=== PATIENT | female | born 1935 | race Caucasian/White ===

== ENCOUNTER 2025-06-23 15:31 | Emergency (ER) | payer MEDICARE, SELFPAY ==
[2025-06-23] VITALS (25 sets, daily range): BP systolic 164–240; BP diastolic 77–102; PULSE 76–99; RESP 12–35; TEMP 36.5; O2SAT 83–99
--- NOTE | 2025-06-23 15:51 | DI.RAD.S_ITS ---
PROCEDURE: XR CHEST 1V INDICATIONS: chest pain/sob TECHNIQUE: One view of the chest was acquired. COMPARISON: None. FINDINGS: Surgical changes and devices: None. Lungs and pleura: Lungs are clear. No pleural effusions or pneumothorax. Mediastinum: Mediastinal contours appear normal. Heart size is normal. Bones and chest wall: No suspicious bony lesions. Overlying soft tissues appear unremarkable. IMPRESSION: No acute cardiopulmonary abnormality is seen. Dictated by: Lionel Milligan M.D. on 06/23/2025 at 16:37 Approved by: Lionel Milligan M.D. on 06/23/2025 at 16:38
--- NOTE | 2025-06-23 15:51 | EKG_ITS ---
[address] [address] Test Date: 2025-06-23 Pat Name: Sariah Florentino Department: [facility] Room: Gender: Female [employer]: MICHAEL : 1935 Requested By: Order Number: [id number] Reading MD: Darci Quesada MD Measurements Intervals [place] Rate: 93 P: 92 NC: 188 QRS: 80 QRSD: 84 T: 50 QT: 334 QTc: 415 Interpretive Statements Sinus rhythm with fusion complexes Nonspecific ST and T wave abnormality Electronically Signed On 06-23-2025 17:06:08 PST by Darci Quesada MD
--- NOTE | 2025-06-23 15:52 | ED.SOB ---
HPI - SOB/Dyspnea General Chief Complaint: Shortness of Breath/Dyspnea Stated Complaint: PC ref, Breathing issues, might need nebulizer tx Time Seen by Provider: 06/23/25 15:51 Source: patient, RN notes reviewed and old records reviewed Mode of arrival: Wheelchair Limitations: no limitations History of Present Illness HPI Narrative: 89-year-old female with history of COPD, coronary artery disease with prior cardiac stent on aspirin daily with known peripheral vascular disease who presents with complaint of increasing shortness of breath and substernal chest discomfort. Patient states her shortness of breath has progressively worse over months. She states she has a little bit of substernal chest pain without any radiation. She notes some subjective fever, she has has a little nasal congestion in the past week. She states her cough has been slightly worse she has 1 at baseline and states she has had white discolored sputum. No hemoptysis. She denies any nausea or vomiting. She denies any diarrhea or constipation or other GI symptoms. She denies any urinary symptoms. Patient notes chronic swelling in her lower extremities but not worse than normal. She notes she has had a prior cardiac stent she is on aspirin she states she takes medication for hypertension, dyslipidemia denies any diabetes. Her and her daughter note that she has narrowing of the veins in her lower extremities but has been told by vascular that they are unable to intervene. She states she has had prior neck surgery and bilateral knee surgery but denies any other surgical history. Patient reports an allergy to morphine states that her arm got swollen and red. She has a history tobacco use, 1 alcoholic drink yearly, no recreational drugs. Dr. Gonzalez is her primary care physician. She follows with the vascular through [facility]. She sees Cardiology locally. Related Data Allergies Allergy/AdvReac Type Severity Reaction Status Date / Time morphine (MORPHINE) Allergy Unknown Unverified 06/23/25 20:02 Review of Systems Review of Systems ROS Unobtainable: All systems reviewed & are unremarkable except as noted in HPI and below Patient History Social History Smoking Status: Former smoker Smoking Status: Former smoker Exam Narrative Exam Narrative: GENERAL: Alert and oriented x three, elderly female in mild distress HEENT: Head normocephalic, atraumatic, EOMI, pupils reactive, face symmetric, moist mucous membranes NECK: Supple, full range of motion CARDIOVASCULAR: Regular rate and rhythm without murmurs, rubs or gallops. Mild edema bilateral lower extremities. RESPIRATORY: Breath sounds decreased bilaterally, no wheezes, no rhonchi. Mild tachypnea. Crackles in bilateral bases. ABDOMEN: Soft, nontender. Normoactive bowel sounds all 4 quadrants. No guarding or rebound, rigidity, no mass : No CVA tenderness EXTREMITIES: Normal range of motion, no clubbing. Neurovascularly intact NEUROLOGICAL: Cranial nerves II through XII grossly intact. Moving all extremities SKIN: Warm, dry, no petechiae, no rashes or lesions. Initial Vital Signs Initial Vital Signs: Vital Signs Pulse Rate 76 06/23/25 15:44 Pulse Oximetry 95 06/23/25 15:44 Course Orders Ordered: ED Orders 06/23/25 15:48 Complete Blood Count AUTO DIFF Stat Comprehensive Metabolic Panel Stat Lipase Stat Magnesium Stat NT-proBNP (BNP-Adult 18+) Stat PTT [PTT Partial Thromboplastin Arben] Stat Troponin I Stat 06/23/25 15:51 XR chest 1V Stat EKG-12 Lead Stat 06/23/25 15:52 Covid-19 + FLU A/B + RSV - PCR Stat 06/23/25 17:48 Trop I [Troponin I] Stat Discontinued Medications Albuterol/Ipratropium (Albuterol/Ipratropium 3 Ml Ampul) 3 ml INH NOW ONE Stop: 06/23/25 15:52 Last Admin: 06/23/25 15:55 Dose: 3 ml Documented By: PEGGY Aspirin (Aspirin 81 Mg Chew Tab) 324 mg PO NOW ONE Stop: 06/23/25 16:33 Last Admin: 06/23/25 16:39 Dose: 324 mg Documented By: JOHN Heparin Sodium (Porcine) (Heparin 5,000 Unit/Ml Vial) 4,500 unit 60 unit/kg (4500 unit) IV NOW ONE Stop: 06/23/25 17:17 Last Admin: 06/23/25 17:29 Dose: 4,500 unit Documented By: JOHN Heparin Sodium/Dextrose (Heparin Drip) 25,000 unit in 500 mls @ 17.309 mls/hr IV CONT ALAN; Protocol Last Admin: 06/23/25 17:29 Dose: 12 units/kg/hr, 17.309 mls/hr Documented By: JOHN Co-signed By: FABIANO Lorazepam (Lorazepam 0.5 Mg Tablet) 0.5 mg PO NOW ONE Stop: 06/23/25 20:00 Last Admin: 06/23/25 20:04 Dose: 0.5 mg Documented By: FABIANO Methylprednisolone (Methylprednisolone Succ 125 Mg/2 Ml Vial) 125 mg IV NOW ONE Stop: 06/23/25 15:52 Last Admin: 06/23/25 16:05 Dose: 125 mg Documented By: JOHN Nitroglycerin (Nitroglycerin 0.4 Mg Sl Tab) 0.4 mg SL NOW ONE Stop: 06/23/25 17:05 Last Admin: 06/23/25 17:17 Dose: 0.4 mg Documented By: JOHN Vital Signs Vital signs: Vital Signs - 8 hr 06/23/25 15:44 06/23/25 15:47 06/23/25 15:47 Temperature Pulse Rate 76 94 H Respiratory Rate 19 Blood Pressure 240/102 H Pulse Oximetry 95 95 Oxygen Delivery Method Oxygen Flow Rate Fraction of Inspired Oxygen 06/23/25 15:48 06/23/25 15:48 06/23/25 15:48 Temperature Pulse Rate 99 H 95 H Respiratory Rate 22 12 Blood Pressure 240/102 H 209/102 H Pulse Oximetry 83 L 95 Oxygen Delivery Method Room Air Oxygen Flow Rate Fraction of Inspired Oxygen 06/23/25 15:53 06/23/25 15:56 06/23/25 16:00 Temperature 97.7 F Pulse Rate 92 H Respiratory Rate 20 Blood Pressure 189/89 H Pulse Oximetry 98 Oxygen Delivery Method Nasal Cannula Oxygen Flow Rate 3 Fraction of Inspired Oxygen 32 06/23/25 16:00 06/23/25 16:30 06/23/25 16:31 Temperature Pulse Rate 92 H 82 Respiratory Rate 32 H 24 Blood Pressure 176/78 H Pulse Oximetry 98 98 Oxygen Delivery Method Oxygen Flow Rate Fraction of Inspired Oxygen 06/23/25 16:31 06/23/25 17:00 06/23/25 17:00 Temperature Pulse Rate 81 88 Respiratory Rate 23 26 H Blood Pressure 201/88 H Pulse Oximetry 99 98 Oxygen Delivery Method Oxygen Flow Rate Fraction of Inspired Oxygen 06/23/25 17:09 06/23/25 17:09 06/23/25 17:17 Temperature Pulse Rate 89 91 H Respiratory Rate Blood Pressure 178/84 H 178/84 H Pulse Oximetry 98 Oxygen Delivery Method Oxygen Flow Rate Fraction of Inspired Oxygen 06/23/25 17:30 06/23/25 17:48 06/23/25 17:48 Temperature Pulse Rate 90 88 Respiratory Rate 21 24 Blood Pressure 164/85 H Pulse Oximetry 94 97 Oxygen Delivery Method Oxygen Flow Rate Fraction of Inspired Oxygen 06/23/25 18:00 06/23/25 18:00 06/23/25 18:30 Temperature Pulse Rate 91 H 86 Respiratory Rate 23 Blood Pressure 167/80 H Pulse Oximetry 96 96 Oxygen Delivery Method Oxygen Flow Rate Fraction of Inspired Oxygen 06/23/25 18:31 06/23/25 18:31 06/23/25 19:00 Temperature Pulse Rate 86 91 H Respiratory Rate Blood Pressure 179/77 H Pulse Oximetry 97 97 Oxygen Delivery Method Oxygen Flow Rate Fraction of Inspired Oxygen 06/23/25 19:01 06/23/25 19:01 06/23/25 19:30 Temperature Pulse Rate 91 H 92 H Respiratory Rate 20 Blood Pressure 183/78 H Pulse Oximetry 97 98 Oxygen Delivery Method Oxygen Flow Rate Fraction of Inspired Oxygen 06/23/25 19:31 06/23/25 19:31 06/23/25 20:00 Temperature Pulse Rate 91 H Respiratory Rate Blood Pressure 177/79 H 193/88 H Pulse Oximetry 98 Oxygen Delivery Method Oxygen Flow Rate Fraction of Inspired Oxygen 06/23/25 20:00 06/23/25 20:30 06/23/25 20:31 Temperature Pulse Rate 92 H 90 Respiratory Rate 18 32 H Blood Pressure 178/89 H Pulse Oximetry 97 96 Oxygen Delivery Method Nasal Cannula Oxygen Flow Rate 3 Fraction of Inspired Oxygen 06/23/25 20:31 06/23/25 21:00 06/23/25 21:01 Temperature Pulse Rate 90 90 Respiratory Rate 29 H 35 H Blood Pressure 181/79 H Pulse Oximetry 96 96 Oxygen Delivery Method Nasal Cannula Oxygen Flow Rate 3 Fraction of Inspired Oxygen 06/23/25 21:01 Temperature Pulse Rate 90 Respiratory Rate 28 H Blood Pressure Pulse Oximetry 97 Oxygen Delivery Method Nasal Cannula Oxygen Flow Rate 3 Fraction of Inspired Oxygen MDM - SOB/Dyspnea Lab Data 06/23/25 15:48 06/23/25 15:48 Labs: Lab Results 06/23/25 06/23/25 06/23/25 Range/Units 15:48 15:52 17:48 WBC 8.2 (4.5-11.0) X10^3/uL RBC 4.47 (4.0-5.2) X10^6/uL Hgb 13.6 (12.0-16.0) g/dL Hct 41.2 (36-46) % MCV 92.3 (80-100) fL MCH 30.5 (26-34) PG MCHC 33.0 (30-36) % RDW 14.4 (11.6-14.8) % Plt Count 205 (150-400) X10^3/uL Neut % (Auto) 74.8 (50-75) % Lymph % (Auto) 10.7 L (25-40) % [place] % (Auto) 12.2 (3-14) % Eos % (Auto) 1.7 L (2-4) % Baso % (Auto) 0.6 (0-2) % Neut # (Auto) 6100 (7477-2908) /uL Lymph # (Auto) 900 L (6284-6519) /uL [place] # (Auto) 1000 H (0-900) /uL Eos # (Auto) 100 (0-450) /uL Baso # (Auto) 0 (0-100) /uL APTT 35 (25.1-36.5) SECONDS Sodium 132 L (137-145) mmol/L Potassium 4.7 (3.4-5.1) mmol/L Chloride 92 L (98-107) mmol/L Carbon Dioxide 33 H (22-32) mmol/L BUN 22 H (7-17) mg/dL Creatinine 0.97 (0.52-1.04) mg/dL Estimated GFR 57 L (>60) mL/min BUN/Creatinine Ratio 22.7 H (6-22) Glucose 111 H (70-99) mg/dL Calcium 10.0 (8.4-10.2) mg/dL Magnesium 1.6 (1.6-2.3) mg/dL Total Bilirubin 0.4 (0.2-1.3) mg/dL AST 30 (14-36) IU/L ALT 21 (<35) IU/L Alkaline Phosphatase 97 (38-126) U/L Troponin I 0.445 H* 0.431 H* (0.01-0.034) ng/mL NT-Pro-B Natriuret Pep 2650 H (<450) pg/mL Total Protein 7.2 (6.3-8.2) g/dL Albumin 4.4 (3.5-5.0) g/dL Globulin 2.8 (1.7-4.1) g/dL Albumin/Globulin Ratio 1.6 (1.0-2.8) Lipase 83 (23-300) U/L SARS-CoV-2 (PCR) Negative (Negative) Influenza A (RT-PCR) Flu a negative (NEGATIVE) Influenza B (RT-PCR) Flu b negative (NEGATIVE) RSV (PCR) Negative (Negative) MDM Narrative Medical decision making narrative: Labs shows normal white count, hemoglobin and platelets, chemistries shows sodium 132 chloride 92 CO2 of 33 with a BUN 22 creatinine 0.97 glucose is 111 calcium is 10 troponins 0.445 with a BNP of 26 50 repeat troponins 0.431 EKG, sinus rhythm rate of 93 [place] 188 QRS 84 QTC of 415, nonspecific ST changes no acute ST-elevation appreciated. Chest x-ray, negative chest x-ray COVID/influenza/RSV is negative Patient received nebs as well as steroids. Patient had no change after nebs. Patient received aspirin, heparin bolus and drip, Nitro sublingual Lasix Spoke with the patient and family they were agreeable for intervention if necessary for cardiac stent she follows with Dr. Rosario. Spoke with Dr. Carbajal cardiology at [facility] as happy to follow along with the patient's service asked that we speak with the hospitalist agrees with the current plan. Spoke with the hospitalist at [facility], Dr. Odom @ [phone], accepts for transfer for NSTEMI/CHF. Critical Care Time Critical Care Time Critical Care Time: Yes Total Critical Care Time: 40 Attestation: The high probability of a clinically significant, sudden or life threatening deterioration of the cardiac, pulm system(s) required my full and direct attention, intervention and personal management. The aggregate critical care time was [--] minutes. This time is in addition to time spent performing reported procedures but includes the following: [x] Data Review and interpretation [x] Patient assessment and monitoring of vital signs [x] Documentation [x] Medication orders and management Discharge Plan Departure Patient Disposition: [facility] Clinical Impression: Non-ST elevation [place] (NSTEMI) Referrals: Melly Gonzalez MD [Primary Care Provider, Internal Medicine]
[2025-06-23] MEDS: ALBUTEROL/IPRATROPIUM 3 ML AMPUL INH (15:55)
[2025-06-23 16:02] LABS: Add Manual Diff / Slide Review NO; Hematocrit 41.2 % (36-46); Hemoglobin 13.6 g/dL (12.0-16.0); Lymphocytes Absolute Auto 900 /uL (1100-4500); Mean Corpuscular HGB Conc 33.0 % (30-36); Mean Corpuscular Hemoglobin 30.5 PG (26-34); Mean Corpuscular Volume 92.3 fL (80-100); Platelet Count 205 X10^3/uL (150-400)
[2025-06-23] MEDS: methylPREDNISolone succ 125 MG/2 ML VIAL IV (16:05)
[2025-06-23 16:16] LABS: Alanine Aminotransferase 21 IU/L (<35); Albumin 4.4 g/dL (3.5-5.0); Albumin Globulin Ratio 1.6 (1.0-2.8); Alkaline Phosphatase 97 U/L (38-126); Blood Urea Nitrogen 22 mg/dL (7-17); Calcium 10.0 mg/dL (8.4-10.2); Carbon Dioxide 33 mmol/L (22-32); Chloride 92 mmol/L (98-107); Estimated Glomerular Filt Rate 57 mL/min (>60); Globulin 2.8 g/dL (1.7-4.1); Glucose 111 mg/dL (70-99); HEMOLYSIS < 15 (0-50); Lipase 83 U/L (23-300); Magnesium 1.6 mg/dL (1.6-2.3); Potassium 4.7 mmol/L (3.4-5.1); Sodium 132 mmol/L (137-145); Total Protein 7.2 g/dL (6.3-8.2)
[2025-06-23 16:28] LABS: NT-proBNP (BNP-Adult 18+) 2650 pg/mL (<450)
[2025-06-23 16:29] LABS: Troponin I 0.445 ng/mL (0.01-0.034)
[2025-06-23] MEDS: ASPIRIN 81 MG CHEW TAB 324 MG PO (16:39)
[2025-06-23 16:52] LABS: Influenza A - CEPHEID Flu A NEGATIVE (NEGATIVE); Influenza B - CEPHEID Flu B NEGATIVE (NEGATIVE)
[2025-06-23 16:55] LABS: COVID-19 CEPHEID 4-PLEX PCR Negative (Negative)
[2025-06-23] MEDS: NITROGLYCERIN 0.4 MG SL TAB SL (17:17)
[2025-06-23] MEDS: HEPARIN 5,000 UNIT/ML VIAL 4500 UNIT IV (17:29)
[2025-06-23] MEDS: HEPARIN DRIP 25,000 UNIT/500 ML IV.SOLN 17.309 UNIT IV (17:29)
[2025-06-23 17:31] LABS: PTT Partial Thromboplastin Tim 35 SECONDS (25.1-36.5)
[2025-06-23 18:35] LABS: Troponin I 0.431 ng/mL (0.01-0.034)
--- NOTE | 2025-06-23 21:31 | PC.NURSE ---
report given to Tram FINK at [facility] Rpt# [phone]
--- NOTE | 2025-06-23 21:48 | PC.NURSE ---
Pt left ED with heparin running at 17ml/hr or 12units/kg/hr
== END 2025-06-23 21:49 | disposition short-term general hospital (02) ==
PROVIDERS: Emergency Provider Emergency Medicine; Family Provider Internal Medicine; PCP Internal Medicine
DX: I21.4 Non-ST elevation (NSTEMI) myocardial infarction (principal); R07.9 Chest pain, unspecified; Z86.79 Personal history of other diseases of the circulatory system; Z95.5 Presence of coronary angioplasty implant and graft
CPT/HCPCS: 36415; 71045; 80053; 83690; 83735; 83880; 84484; 85025; 85730; 87637; 93005; 93010; 94640; 96374; 96375; 99285; 99291; J1644; J2919